=== PATIENT | female | born 1995 | race Caucasian/White ===

== ENCOUNTER 2024-08-29 20:35 | Emergency (ER) | payer BC ==
[~2024-08-29] VITALS: Ht 157.5 cm; Wt 54.4 kg
[2024-08-29] MEDS ORDERED: ACETAMINOPHEN ES 500 MG TABLET ONE (21:34)
[2024-08-29] MEDS ORDERED: MORPHINE SULFATE INJ 4 MG/ML DISP.SYRIN ONE (21:40)
[2024-08-29] MEDS ORDERED: ONDANSETRON HCL/PF 4 MG/2 ML VIAL ONE (21:40)
[2024-08-29] MEDS: ONDANSETRON HCL/PF - ER 4 MG/2 ML VIAL IV ONE (21:58)
[2024-08-29] MEDS: ACETAMINOPHEN ES 500 MG TABLET PO ONE (21:59)
[2024-08-29] MEDS: MORPHINE SULFATE INJ 2 MG/ML DISP.SYRIN IV ONE (21:59)
[2024-08-29] MEDS ORDERED: LORAZEPAM INJ 2 MG/ML VIAL ONE (22:35)
[2024-08-29] MEDS ORDERED: TDAP [DIPH/PERTUSSIS/TET] 0.5 ML VIAL IM ONE (22:35)
[2024-08-29] MEDS: LORAZEPAM INJ 2 MG/ML VIAL IV ONE (22:44)
[2024-08-29] MEDS: TDAP [DIPH/PERTUSSIS/TET] 0.5 ML VIAL IM ONE (22:45)
[2024-08-30] MEDS ORDERED: LIDOCAINE 0.5%-EPI 1:200,000 50 ML VIAL ONE (01:38)
[2024-08-30] MEDS ORDERED: KETO10TA2 PO (02:35)
[2024-08-30] MEDS ORDERED: HYDR-3980 PO (02:35)
[2024-08-30] MEDS ORDERED: AMOX-430 PO (02:35)
[2024-08-30] MEDS ORDERED: MORPHINE SULFATE INJ 4 MG/ML DISP.SYRIN ONE (02:47)
[2024-08-30] MEDS: MORPHINE SULFATE INJ 2 MG/ML DISP.SYRIN IV ONE (02:54)
[2024-08-30 03:32] VITALS: BP 119/65; TEMP 98.3; O2SAT 100
== END 2024-08-30 03:34 | disposition left against medical advice (07) ==
LOC: ER 21:00
DX: S01.81XA Laceration without foreign body of other part of head, initial encounter (principal); S02.69XA Fracture of mandible of other specified site, initial encounter for closed fracture; R68.84 Jaw pain; M25.512 Pain in left shoulder; M26.69 Other specified disorders of temporomandibular joint; Z90.49 Acquired absence of other specified parts of digestive tract; W18.30XA Fall on same level, unspecified, initial encounter; Y93.89 Activity, other specified; Y92.89 Other specified places as the place of occurrence of the external cause; Y99.8 Other external cause status
CPT/HCPCS: 12013; 70486; 73030; 90471; 90715; 96374; 96375; 96376; 99285; J2060; J2270; J2405; J3490